=== PATIENT | female | born 1975 | race Caucasian/White ===

== ENCOUNTER 2020-08-27 04:28 | Day surgery (SDC) | payer OTHER ==
[2020-08-23 13:57] VITALS: BMI 30.7
[2020-08-27] MEDS ORDERED: PROPOFOL 20 ML ONE (11:23)
[2020-08-27] MEDS ORDERED: KETOROLAC TROMETHAMINE 30 MG/1 ML VIAL ONE (11:24)
[2020-08-27 13:23] VITALS: BP 134/79; PULSE 58; TEMP 98
== END 2020-08-27 13:30 | disposition home or self-care (01) ==
LOC: JASU-SURG 04:28
PROVIDERS: ATTEND Urology
PROC: 0TF3XZZ Fragmentation in Right Kidney Pelvis, External Approach (ICD-10-PCS; principal; 2020-08-27 10:30)
DX: N20.0 Calculus of kidney (principal)

== ENCOUNTER 2021-04-22 04:48 | Day surgery (SDC) | payer OTHER ==
[2021-04-18 12:07] VITALS: BMI 31.7
[2021-04-22] MEDS ORDERED: MIDAZOLAM HCL 2 MG/2 ML SINGLE DOSE VIAL ONE ×2 (16:21→17:42)
[2021-04-22] MEDS ORDERED: ONDANSETRON 4 MG/2 ML VIAL IVPUSH PRN (17:35)
[2021-04-22] MEDS ORDERED: ACETAMINOPHEN 500 MG TABLET (FP) PO ONE (17:35)
[2021-04-22] MEDS ORDERED: oxyCODONE HCL 5 MG TABLET PO PRN ×2 (17:35)
[2021-04-22] MEDS ORDERED: KETOROLAC TROMETHAMINE 30 MG/1 ML VIAL ONE ×2 (17:43→18:28)
[2021-04-22] MEDS ORDERED: LACTATED RINGERS SOLUTION 1,000 ML IV SCH (17:45)
[2021-04-22] MEDS ORDERED: diphenhydrAMINE HCL 25 MG CAPSULE (FP) PO ONE ×2 (18:15→18:16)
[2021-04-22 19:46] VITALS: BP 126/79; PULSE 68; TEMP 98
== END 2021-04-22 19:35 | disposition home or self-care (01) ==
LOC: JASU-SURG 04:48
PROVIDERS: ATTEND Urology
PROC: 0TF4XZZ Fragmentation in Left Kidney Pelvis, External Approach (ICD-10-PCS; principal; 2021-04-22 15:30)
DX: N20.0 Calculus of kidney (principal)

== ENCOUNTER 2021-10-14 23:08 | Observation (INO) | payer OTHER ==
[2021-10-14 23:17] VITALS: BMI 31.6
[2021-10-15 02:12] LABS: BASO % 0.9 % (0-2.0); EOS % 0.9 % (0-4.5); HEMOGLOBIN 16.1 GM/dL (10.7-15.3); LYMPH % 13.9 % (8-40); MCH 29.7 pg (25.7-33.7); MCHC 34.4 g/dl (32.0-36.0); MEAN CELL VOLUME 86.5 fl (80-96); MEAN PLT VOLUME 7.7 fl (7.5-11.1); MONO % 3.8 % (3.8-10.2); NEUT % 80.5 % (42.8-82.8); PLATELET COUNT 385 10^3/uL (134-434); RBC 5.43 M/mm3 (3.60-5.2); RDW 12.7 % (11.6-15.6); WHITE BLOOD COUNT 10.2 K/mm3 (4.0-10.0)
[2021-10-15 02:15] LABS: PH,URINE 6.5 (5.0-8.0); URINE APPEARANCE CLEAR; URINE BILIRUBIN NEGATIVE (NEGATIVE); URINE COLOR YELLOW; URINE GLUCOSE (UA) NEGATIVE (NEGATIVE); URINE KETONE NEGATIVE (NEGATIVE); URINE LEUK ESTERASE NEGATIVE (NEGATIVE); URINE NITRITE NEGATIVE (NEGATIVE); URINE PROTEIN NEGATIVE (NEGATIVE); URINE UROBILINOGEN 0.2 mg/dL (0.2-1.0)
[2021-10-15 02:18] LABS: HCG,QUALITATIVE URINE Negative
[2021-10-15 02:33] LABS: ALBUMIN 4.7 g/dl (3.4-5.0); CALCIUM 9.9 mg/dL (8.5-10.1)
[2021-10-15 02:38] LABS: BILIRUBIN,TOTAL 0.4 mg/dL (0.2-1); TOT PROT 8.4 g/dl (6.4-8.2)
[2021-10-15] MEDS ORDERED: ASPIRIN 81 MG CHEWABLE TABLETS PO ONE (03:09)
[2021-10-15] MEDS ORDERED: ASPIRIN 81 MG CHEWABLE TABLETS ONE ×2 (03:38→12:28)
[2021-10-15] MEDS ORDERED: ATORVASTATIN CA 20 MG TABLET (FP) PO ONE (06:25)
[2021-10-15] MEDS ORDERED: amLODIPine BESYLATE 5 MG TABLET (FP) PO ONE (06:32)
[2021-10-15] MEDS ORDERED: ATORVASTATIN CA 20 MG TABLET (FP) ONE (06:37)
[2021-10-15] MEDS ORDERED: amLODIPine BESYLATE 5 MG TABLET (FP) ONE (06:37)
[2021-10-15 08:11] LABS: CHOLESTEROL 208 mg/dL (50-200); TRIGLYCERIDES 136 mg/dL (0-150)
[2021-10-15 08:12] LABS: LDL CHOLESTEROL (ONLY SJRH) 135 mg/dL (5-100)
[2021-10-15 08:14] LABS: HDL CHOLESTEROL 50 mg/dL (40-60)
[2021-10-15] MEDS: ASPIRIN 81 MG CHEWABLE TABLETS PO SCH (12:00)
[2021-10-15] MEDS ORDERED: LISINOPRIL 5 MG TABLET PO ONE (13:34)
[2021-10-15] MEDS ORDERED: PANTOPRAZOLE 40 MG TABLET PO ONE ×2 (14:00→14:02)
[2021-10-15 14:41] LABS: CALCIUM 9.2 mg/dL (8.5-10.1)
[2021-10-15 14:42] LABS: ALBUMIN 3.9 g/dl (3.4-5.0); BLOOD UREA NITROGEN 14.8 mg/dL (7-18); MAGNESIUM 2.4 mg/dL (1.8-2.4)
[2021-10-15 14:44] LABS: CREATININE 0.9 mg/dL (0.55-1.3)
[2021-10-15 14:46] LABS: BILIRUBIN,TOTAL 0.7 mg/dL (0.2-1); TOT PROT 7.1 g/dl (6.4-8.2)
[2021-10-15] MEDS ORDERED: clonazePAM 0.5 MG TABLET PO PRN (18:18)
[2021-10-15] MEDS ORDERED: ATORVASTATIN CA 20 MG TABLET (FP) PO SCH (22:00)
[2021-10-15] MEDS ORDERED: AMITRIPTYLINE HCL 10 MG TABLET PO SCH (22:00)
[2021-10-15] MEDS: BACLOFEN 10 MG TABLET (FP) PO PRN (22:18)
[2021-10-16 01:32] VITALS: PULSE 70
[2021-10-16 08:44] VITALS: BP 117/72; TEMP 98.2
[2021-10-16] MEDS ORDERED: ESCITALOPRAM OXALATE 20 MG TABLET PO SCH (10:00)
[2021-10-16] MEDS ORDERED: metoPROLOL SUCCINATE 25 MG TAB.SR.24H (FP) PO SCH (10:00)
[2021-10-16] MEDS: ASPIRIN 81 MG CHEWABLE TABLETS PO SCH (10:20)
[2021-10-16] MEDS: ENOXAPARIN NA (PORCINE) 40 MG/0.4 ML DISP.SYRIN SQ SCH ×2 (10:20→10:35)
[2021-10-16] MEDS: BACLOFEN 10 MG TABLET (FP) PO PRN (10:21)
== END 2021-10-16 11:38 | disposition home or self-care (01) ==
LOC: JER 23:08 → SUATTDRO 23:08 → JERBED 10-15 03:08 → UNDOADMOB 10-15 03:08 → INTOOBSV 10-15 03:08 → JERBED 10-15 06:10 → J4W 10-15 22:02
PROVIDERS: ADMIT Internal Medicine; ATTEND Nurse Practitioner Family
DX: R42 Dizziness and giddiness (principal); I10 Essential (primary) hypertension; R10.30 Lower abdominal pain, unspecified; K21.9 Gastro-esophageal reflux disease without esophagitis; R51.9 Headache, unspecified; N20.0 Calculus of kidney; K76.0 Fatty (change of) liver, not elsewhere classified; R94.31 Abnormal electrocardiogram [ECG] [EKG]; Z91.013 Allergy to seafood; Z29.8 Encounter for other specified prophylactic measures
CPT/HCPCS: 36415; 70450-TC; 71045-TC-FY; 74176-TC; 80053; 80061; 81003; 83036; 83690; 83735; 84443; 84484; 84703; 85025; 87086; 87186; 93005; 93010; 93306-TC; 97116-GP; 97161-GP; 99285-25; C9803-CS; G0378; J0475; U0003; U0005